=== PATIENT | female | born 1980 | race Caucasian/White ===

== ENCOUNTER 2021-06-26 12:19 | Outpatient (CLI) | payer OTHER | END 2021-06-26 12:20 | disposition home or self-care (01) | LOC: CSHCT 12:19 | PROVIDERS: ATTEND Neurological Surgery | DX: M54.12 Radiculopathy, cervical region (principal); M47.812 Spondylosis without myelopathy or radiculopathy, cervical region | CPT/HCPCS: 72125 ==